=== PATIENT | male | born 1940 | race Caucasian/White ===

== ENCOUNTER → 2023-04-02 14:09 | Outpatient (CLI) | payer MEDICARE, SELFPAY ==
--- NOTE | 2023-04-02 | DI.CT.S_ITS ---
PROCEDURE: CT SINUS SCREEN WO CON INDICATIONS: SINUSITIUS TECHNIQUE: Noncontrast 3.0 mm axial images acquired from the frontal sinuses to the mid-sella, with coronal and sagittal reformats. For radiation dose reduction, the following was used: automated exposure control, adjustment of mA and/or kV according to patient size. COMPARISON: None. FINDINGS: Image quality: Excellent. Maxillary Sinuses: Portions of the superior medial maxillary sinus hays are demineralized. There is moderate mucosal thickening within the inferior left maxillary sinus. Ethmoid Air Cells: Several of the bony ethmoid air cell septations are demineralized. Mild mucosal thickening can be seen within the ethmoid air cells. Sphenoid Sinuses: No bony remodeling or destruction. There is moderate mucosal thickening within the posterior right sphenoid sinus. Frontal Sinuses: No bony remodeling or destruction. Mild mucosal thickening can be seen within the inferior medial frontal sinuses. Ostiomeatal Complexes: Ostiomeatal complexes are patent, yet they are highly constitutionally narrowed. There further narrowed by soft tissue thickening. No Jose De Jesus cells. The ostiomeatal complexes are demineralized. Miscellaneous: Visualized intra-orbital contents are normal. There are mild bilateral pennie bullosa. There is moderate leftward nasal septal deviation, with a leftward directed bony nasal septal spur IMPRESSION: Multifocal paranasal sinus disease can be seen. 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 There is moderate leftward nasal septal deviation, with a leftward directed bony nasal septal spur. Areas of bony demineralization are seen, which are consistent with chronic sinusitis. Dictated by: Chevy Pastor M.D. on 04/02/2023 at 13:54 Approved by: Chevy Pastor M.D. on 04/02/2023 at 13:58
== END ==
LOC: CT 14:14
PROVIDERS: Referring Provider Otolaryngology; Visit Provider Otolaryngology
DX: J32.4 Chronic pansinusitis (principal); J34.2 Deviated nasal septum
CPT/HCPCS: 70486

== ENCOUNTER → 2023-04-09 07:56 | Outpatient (CLI) | payer MEDICARE, SELFPAY ==
--- NOTE | 2023-04-09 | DI.CT.S_ITS ---
PROCEDURE: CT CHEST ABD PEL W CON INDICATIONS: Uroepithelial cancer of left kidney. TECHNIQUE: After the administration of intravenous contrast, 5 mm thick sections acquired from the lung apices to the symphysis. 5 mm coronal and sagittal reformats were performed, with additional 7 mm MIP reformats through the lungs. For radiation dose reduction, the following was used: automated exposure control, adjustment of mA and/or kV according to patient size. COMPARISON: [facility], CT, CT CHEST WITHOUT CONTRAST, 11/20/2021, 17:55. [facility], CT, CT KUB, 11/20/2021, 17:55. [facility], CT, CT ABDOMEN PELVIS WITH CONTRAST, 05/23/2022, 10:58. [facility], CT, CT ABDOMEN PELVIS WITHOUT CONTRAST, 02/07/2022, 14:32. [facility], CT, CT CHEST ABDOMEN PELVIS WITH CONTRAST, 11/19/2022, 10:58. FINDINGS: Image quality: Excellent. CHEST: Lower Neck: No enlarged lymph nodes. Thyroid: No thyroid nodules which require sonographic follow up, per consensus guidelines. Axillae: No enlarged lymph nodes. Chest Wall: There is a cardiac pacemaker. Lungs and Pleura: There are numerous subpleural lung nodules, new since the last exam. Reference nodules are listed in following: -5 mm; right lower lobe; series 5, image 173. -5 mm; right lower lobe; series 5, image 240. -10 mm; right lower lobe; series 5, image 258. -5 mm; left lower lobe; series 5, image 209. There is a calcified granuloma in the right upper lobe. Small right pleural effusion, new. No pneumothorax. No consolidation. Bibasilar dependent atelectasis. Heart: Heart size is moderately enlarged. No pericardial effusion. Mild coronary artery calcification. Thoracic Vessels: The aorta and pulmonary arteries demonstrate normal size. Mediastinum and Tamika: There is mildly enlarged lymph nodes. Reference lymph nodes: -1.1 x 1.6 cm prevascular lymph node; series 2, image 18. -1.3 pretracheal lymph node; series 2, image 21. -1.1 x 1.4 precarinal lymph node; series 2, image 28. Esophagus: No wall thickening. Small hiatal hernia. ABDOMEN: Liver: No solid mass. Gallbladder: No radiopaque gallstones or wall thickening. Biliary ducts: No biliary dilation. Pancreas: No ductal dilation. Spleen: Size is within normal limits. Adrenal Glands: No adrenal nodules. Kidneys and Ureters: Left Kidney is surgically resected. No findings to suggest recurrent mass in the left renal fossa. Right kidney is normal in size. There is a 1.1 cm hypodense nodule in the lateral inferior aspect of the right kidney, adjacent to a cortical scar. It appears unchanged in size when compared to the last exam dated 11/19/2022. No hydronephrosis. No solid mass. No complex renal cystic lesion which requires follow up. Stomach and Bowel: Normal bowel caliber, without significant wall thickening. There are scattered colonic diverticula. No CT findings to suggest acute diverticulitis. 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 It appears unchanged. No abnormal intraperitoneal fluid. No free air. Ventral Wall: No hernia. Abdominal Nodes: No retroperitoneal or mesenteric adenopathy by size criteria. Vessels: Aorta and inferior vena cava are normal in size. PELVIS: Pelvic Organs: Prostate is enlarged. Bladder: Mild bladder wall thickening. Pelvic Nodes: No enlarged lymph nodes. Miscellaneous: No inguinal hernias are seen. Bones: Spondylitic changes are noted in lower cervical, thoracic and lumbar spine. IMPRESSION: 1. Left nephrectomy. No recurrent mass in the left renal fossa. 2. Stable 1.1 cm hypodense nodule in the lateral aspect of the inferior pole of the right kidney. 3. Mild mediastinum lymphadenopathy, new since the last exam. 4. Multiple new pulmonary nodules. The nodules are subpleural and predominantly involving right lower lobe. Infectious or inflammatory nodules are favored but neoplasm such as metastatic disease cannot be excluded. Recommend clinical correlation and short interval follow-up chest CT. 5. Small right pleural effusion, new. 6. Enlargement of prostate. Mild bladder wall thickening may be secondary to chronic bladder outlet obstruction. 7. Please see the body of the report for other nonurgent incidental findings. Dictated by: Shreyas Abbott M.D. on 04/09/2023 at 11:36 Approved by: Shreyas Abbott M.D. on 04/09/2023 at 12:02
[2023-04-09 08:32] LABS: Estimated Glomerular Filt Rate 52 mL/min (>60)
== END ==
PROVIDERS: Radiology Diagnostic Radiology; Referring Provider Urology; Visit Provider Urology
DX: C64.2 Malignant neoplasm of left kidney, except renal pelvis (principal); C68.9 Malignant neoplasm of urinary organ, unspecified; N18.30 Chronic kidney disease, stage 3 unspecified; J90 Pleural effusion, not elsewhere classified; R91.8 Other nonspecific abnormal finding of lung field; R59.0 Localized enlarged lymph nodes; N28.9 Disorder of kidney and ureter, unspecified; N40.0 Benign prostatic hyperplasia without lower urinary tract symptoms; N13.8 Other obstructive and reflux uropathy; Z90.5 Acquired absence of kidney
CPT/HCPCS: 36415; 71260; 74177; 82565; Q9967